=== PATIENT | male | born 1985 | race Caucasian/White ===

== ENCOUNTER 2016-09-28 11:10 | Emergency (ER) | payer OTHER ==
[~2016-09-28 11:10] MED LIST: BACITRACIN30 GM TOP; BACTRIM DS TABL1 TA1 PO; FLEXERIL10 MG PO; IBUPROFEN800 MG PO; KEFLEX PO; KEFLEX500 M1 PO; MEDROL PO; NAPROXEN PO; NO MEDICATIONS; SKELAXIN PO; ULTRAM PO; VOLTAREN75 MG PO
== END 2016-09-28 11:48 | disposition home or self-care (01) ==
LOC: SED 11:10
DX: M54.12 Radiculopathy, cervical region (principal); Z86.19 Personal history of other infectious and parasitic diseases; F17.210 Nicotine dependence, cigarettes, uncomplicated
CPT/HCPCS: 96372; 99283; J1885